=== PATIENT | male | born 1965 | race Caucasian/White ===

== ENCOUNTER 2019-02-17 18:09 | Emergency (ER) | payer OTHER | END 2019-02-17 21:01 | disposition home or self-care (01) | LOC: FTE 18:09 | DX: L98.9 Disorder of the skin and subcutaneous tissue, unspecified (principal); F17.210 Nicotine dependence, cigarettes, uncomplicated | CPT/HCPCS: 99283; Z7502 ==

== ENCOUNTER 2019-03-01 14:26 | Emergency (ER) | payer OTHER | END 2019-03-01 16:00 | disposition home or self-care (01) | LOC: FTE 14:26 | DX: B86 Scabies (principal); B00.9 Herpesviral infection, unspecified; L98.9 Disorder of the skin and subcutaneous tissue, unspecified | CPT/HCPCS: 99283; Z7502 ==

== ENCOUNTER 2019-03-19 06:28 | Emergency (ER) | payer OTHER | END 2019-03-19 07:19 | disposition home or self-care (01) | LOC: E/R 06:28 | DX: B86 Scabies (principal); Z76.0 Encounter for issue of repeat prescription | CPT/HCPCS: 99281; Z7502 ==

== ENCOUNTER → 2019-05-28 | Emergency (ER) | payer OTHER | END | disposition home or self-care (01) | LOC: FTE 18:27 | DX: L98.9 Disorder of the skin and subcutaneous tissue, unspecified (principal); F17.210 Nicotine dependence, cigarettes, uncomplicated | CPT/HCPCS: 99283; Z7502 ==